=== PATIENT | female | born 1950 | race Caucasian/White ===

== ENCOUNTER → 2020-10-09 10:19 | Outpatient (BNVA) | payer MEDICARE, SELFPAY | PROVIDERS: PCP Internal Medicine Endocrinology, Diabetes & Metabolism; Visit Provider Urology | DX: R33.9 Retention of urine, unspecified (principal); N39.0 Urinary tract infection, site not specified; E11.43 Type 2 diabetes mellitus with diabetic autonomic (poly)neuropathy; Z79.4 Long term (current) use of insulin | CPT/HCPCS: 99212 ==

== ENCOUNTER → 2021-04-10 08:23 | Outpatient (BNVA) | payer MEDICARE, SELFPAY | PROVIDERS: PCP Internal Medicine Endocrinology, Diabetes & Metabolism; Visit Provider Urology | DX: Z13.89 Encounter for screening for other disorder (principal) | CPT/HCPCS: Q3014 ==

== ENCOUNTER 2023-12-29 10:42 | Outpatient (AMB) | payer MEDICARE, SELFPAY ==
--- NOTE | 2023-12-29 10:53 | A.OFFVIS_ITS ---
Intake Visit Reasons: [facility] ER- Voiding Trial/Follow Up Intake Note: Patient is present for Voiding Trial/[facility] ER Follow up Urology Med: Tamsulosin, Bethanechol Antibiotic Allergy: None Blood Thinner: Clopidogrel(Plavix) Warfarin [facility] ER Admit: 11/18/2023 Patient has [facility] ([facility]) PVR: 100 Patient passed voiding trial Per Dr Galan if pt has issues orders will be sent to [facility] to care for catheter Activated Sludge Attendant Required: No Screen Machine Operator: Screen Machine Operator Present Accompanied by: Son Allergies No Known Allergies Allergy (Verified 12/29/23 11:19) HPI Comments Details: Sulma DANIEL is a very pleasant female. She is patient Dr. Haas. Accompanied by her son. She is seen for the following urologic conditions. - incomplete bladder emptying - recurring UTI Has not been seen since 2021 Episode of urinary retention happened in August Multiple hospitalizations since with flare of ulcerative colitis Here for voiding trial Only 100 residual Has remained on bethanechol and tamsulosin Six-month follow-up Did discuss possible suprapubic tube if required Neurogenic Bladder:? - diabetics ? They are here for ?further management for incomplete emptying neurogenic bladder ?- stable on combination bethanechol and tamsulosin.? Urinary retention initially found?progressive development over time ?- diabetic cystopathy.? Voiding trial outcome?took six months to regain minor bladder function.? Associated conditions? Alzhiemers ?No ? CAD ?No ? CVA ?No ? Diabetes ?Yes ? Multiple sclerosis ?No ? renal replacement therapy ?No ? Spinal injury/surgery ?No ? Current management?alpha blockers, bethanechol.? Therapeutic plan?continue with medication.? [facility] Medical History Lymphedema Varicose veins of right lower extremity with inflammation PVD (peripheral vascular disease) Complicated UTI (urinary tract infection) Weak urinary stream Acute cystitis without hematuria Type 2 diabetes mellitus with diabetic autonomic neuropathy, with long-term current use of insulin H/O urinary retention Surgical History History of surgery Review of Systems Const Denies chills and Denies fever(s) Card Reports no additional complaints and Denies syncope Resp Denies cough GI Denies abdominal pain and Denies heartburn Reports as per HPI and Denies change in libido Neuro Denies syncope Psych Denies change in libido Endo Denies change in libido Physical Exam Const General: cooperative, healthy appearing, comfortable and no acute distress Orientation/consciousness: patient oriented x3 HEENT Face and sinus: Yes normal facial exam Mouth: moist mucous membranes Neck Neck: Yes normal visual inspection, Yes full ROM and Yes trachea midline Chest Chest palpation & inspection: normal inspection of the chest Resp Effort & Inspection: normal respiratory effort, able to speak in complete sentences and no respiratory distress GI Inspection: Yes normal to inspection Back/Spine/Pelvis Cervical Spine: normal cervical lordosis Thoracic/Lumbar Spine: thoracic and lumbar spine normal to inspection Skin General skin exam: no rashes or lesions noted Neuro General: patient oriented x3, gait normal, tone normal and moves all extremities Extrem General: Yes normal to inspection and Yes capillary refill normal Office Procedures Bladder/Catheter Procedure Details: Patient presents to [facility] for voiding trial s/p hospitalization. Instilled 120mls sterile water through catheter, patient tolerated instillation well. Removed 16fr wells catheter. Patient voiding upon removal of catheter, unknown amount. MA to bladder scan [id number]-[id number] of Bladder Procedure code (CPT) selection complete Post Void Residual Post Residual Void Post Void Residual (PVR): 100 [id number]-[id number] Void Residual by ultrasound Assessment & Plan Assessment & Plan (1) Complicated UTI (urinary tract infection): Code(s): N39.0 - Urinary tract infection, site not specified Category: Medical (2) Urinary retention with incomplete bladder emptying: Code(s): R33.9 - Retention of urine, unspecified Category: Medical Plan Six-month follow-up PVR Patient Instructions: Imaging studies, laboratory and physical exam results were discussed and reviewed in detail. No major barriers to patient understanding were identified. An opportunity to ask questions regarding the treatment plan was provided. All questions were answered. The patient expressed understanding and agreement with the above treatment plan. The patient is aware they should contact our office by phone for worsening of their current condition or the appearance of new urologic symptoms. Compliance is encouraged with any medications and followup testing that is ordered. It is a privilege to participate in the urologic care of your patient. If you have any questions or concerns regarding treatment for the above conditions, or other urologic issues, please do not hesitate to contact me. The office telephone contact is [phone]. This note is constructed using voice recognition software. While every effort has been made to ensure accuracy telecommunications support errors may have been included. Yours sincerely, Dr Mikhail Galan MD, [facility] - Urology Providers of Expert, Compassionate Care for the Genitourinary System Coding Level of Care Code Est Pt Level 4 (01640) Diagnoses Complicated UTI (urinary tract infection) N39.0 Urinary retention with incomplete bladder emptying R33.9 CPT Codes Bladder/Catheter Procedure - CPT: 99496-Vzfzdbzpbo of Bladder ([id number]) Post Residual Void - PVR CPT Code: 08400-Ahbj Void Residual by ultrasound ([id number])
== END 2023-12-29 12:10 | disposition home or self-care (01) ==
LOC: HO.HUSH 10:42
PROVIDERS: PCP Internal Medicine Endocrinology, Diabetes & Metabolism; Visit Provider Urology
DX: N39.0 Urinary tract infection, site not specified (principal); R33.9 Retention of urine, unspecified
CPT/HCPCS: 51700; 99214

== ENCOUNTER → 2023-12-29 10:42 | Outpatient (BNVA) | payer MEDICARE, SELFPAY | PROVIDERS: PCP Internal Medicine Endocrinology, Diabetes & Metabolism; Visit Provider Urology | DX: R33.9 Retention of urine, unspecified (principal); N39.0 Urinary tract infection, site not specified; N31.9 Neuromuscular dysfunction of bladder, unspecified; E11.9 Type 2 diabetes mellitus without complications | CPT/HCPCS: 51700; 51798; 99212 ==